=== PATIENT | female | born 1965 | race Caucasian/White ===

== ENCOUNTER 2018-12-24 11:39 | Emergency (ER) | payer MEDICARE, OTHER ==
[~2018-12-24] VITALS: Ht 167.6 cm; Wt 58.6 kg
[~2018-12-24 11:39] MED LIST: ALEN40TA2 PO; CYCL10TA40 PO; DIAZ5TAB5 PO; FLUT16SP16 NS; HYDR-3972 PO; OXYC-511 PO; PROC-8 PO; SIMV10TA6 PO
[2018-12-24 11:59] VITALS: BP 129/79
[2018-12-24] MEDS ORDERED: dexamethasone 0.5 mg/5ml unit-dose oral solution PO STA (12:26)
[2018-12-24] MEDS ORDERED: CLIN150C2 PO (12:26)
[2018-12-24] MEDS ORDERED: ketorolac trometh inj. 60 MG/2 ML VIAL IM ONE (12:30)
[2018-12-24] MEDS ORDERED: dexamethasone sod phosphate 10mg/ml inj PO ONE (12:30)
== END 2018-12-24 12:47 | disposition home or self-care (01) ==
LOC: ER 11:40
DX: L03.211 Cellulitis of face (principal); K13.0 Diseases of lips; G43.909 Migraine, unspecified, not intractable, without status migrainosus; G89.29 Other chronic pain; Z90.710 Acquired absence of both cervix and uterus; Z86.73 Personal history of transient ischemic attack (TIA), and cerebral infarction without residual deficits; Z91.012 Allergy to eggs; Z88.8 Allergy status to other drugs, medicaments and biological substances; Z79.899 Other long term (current) drug therapy
CPT/HCPCS: 96372; 99283; J1100; J1885; J8540

== ENCOUNTER 2019-01-02 10:45 | Emergency (ER) | payer MEDICARE, OTHER ==
[~2019-01-02] VITALS: Ht 167.6 cm; Wt 58.0 kg
[~2019-01-02 10:45] MED LIST changes: +CLIN150C2 PO
[2019-01-02 10:52] VITALS: BP 113/68
[2019-01-02] MEDS ORDERED: DOXY100C2 PO (11:45)
== END 2019-01-02 11:54 | disposition home or self-care (01) ==
LOC: ER 10:45
DX: L03.113 Cellulitis of right upper limb (principal); G43.909 Migraine, unspecified, not intractable, without status migrainosus; G89.29 Other chronic pain; Z86.73 Personal history of transient ischemic attack (TIA), and cerebral infarction without residual deficits; Z90.710 Acquired absence of both cervix and uterus; Z91.012 Allergy to eggs; Z88.8 Allergy status to other drugs, medicaments and biological substances; Z79.899 Other long term (current) drug therapy
CPT/HCPCS: 99283

== ENCOUNTER 2019-04-24 11:53 | Emergency (ER) | payer MEDICARE, MEDICAID ==
[~2019-04-24] VITALS: Ht 172.7 cm; Wt 60.0 kg
[~2019-04-24 11:53] MED LIST changes: -CLIN150C2 PO
[2019-04-24 12:04] VITALS: BP 111/71
[2019-04-24] MEDS ORDERED: TETanus/Pertussis (Acell)/Diphther VAC/PF (Tdap-Adult) 0.5ml syringe IM ONE (12:35)
[2019-04-24] MEDS ORDERED: LIDOcaine 1% w/epiNEPHrine 1:200,000 30ml vial IM ONE (12:35)
[2019-04-24] MEDS ORDERED: CEPH-572 PO (13:06)
[2019-04-24] MEDS ORDERED: SULF1TAB49 PO (13:06)
[2019-04-24] MEDS ORDERED: lidocaine 1%/epinephrine 1:100,000 injection 50ml vial ONE (15:00)
== END 2019-04-24 13:24 | disposition home or self-care (01) ==
LOC: ER 11:54
DX: L02.31 Cutaneous abscess of buttock (principal); G43.909 Migraine, unspecified, not intractable, without status migrainosus; G89.29 Other chronic pain; Z86.73 Personal history of transient ischemic attack (TIA), and cerebral infarction without residual deficits; Z90.710 Acquired absence of both cervix and uterus; Z79.899 Other long term (current) drug therapy; Z91.012 Allergy to eggs; Z88.8 Allergy status to other drugs, medicaments and biological substances
CPT/HCPCS: 10060; 90471; 90715; 99283; J3490

== ENCOUNTER 2020-06-19 15:58 | Emergency (ER) | payer MEDICAID ==
[~2020-06-19] VITALS: Ht 167.6 cm; Wt 59.1 kg
[~2020-06-19 15:58] MED LIST changes: -OXYC-511 PO; +OXYC1TAB17 PO; -SIMV10TA6 PO; +SIMV10TA98 PO
[2020-06-19] MEDS ORDERED: NO HOME MEDS (16:19)
[2020-06-19 17:39] LABS: BASOPHILS % (AUTO) 0.8 % (0-1); EOSINOPHILS # (AUTO) 0.2 X10'3 (0-0.9); EOSINOPHILS % (AUTO) 2.8 % (0-6); HEMATOCRIT 38.4 % (35.0-45.0); HEMOGLOBIN 12.9 g/dl (12.0-16.0); LYMPHOCYTES % (AUTO) 33.7 % (21-51); MEAN CORPUSCULAR HEMOGLOBIN 32.5 PG (27.0-31.0); MEAN CORPUSCULAR HGB CONC 33.4 g/dL (33.0-36.5); MEAN CORPUSCULAR VOLUME 97.1 FL (78-98); MEAN PLATELET VOLUME 6.5 FL (7.4-10.4); MONOCYTES # (AUTO) 0.4 X10'3 (0-0.9); MONOCYTES % (AUTO) 7.4 % (2-12); NEUTROPHILS # (AUTO) 3.3 X10'3 (1.8-7.7); NEUTROPHILS % (AUTO) 55.3 % (42-75); PLATELET COUNT 282 X10'3 (140-440); RED BLOOD COUNT 3.96 X10'6 (4.20-5.60); RED CELL DISTRIBUTION WIDTH 13.3 % (11.5-14.5); WHITE BLOOD COUNT 5.9 X10'3 (4.5-11.0)
[2020-06-19 17:51] LABS: ALANINE AMINOTRANSFERASE 21 U/L (12-78); ALBUMIN 3.7 G/DL (3.4-5.0); ALBUMIN/GLOBULIN RATIO 1.2 (1.1-1.5); ALKALINE PHOSPHATASE 65 IU/L (46-116); ANION GAP 6 (8-16); ASPARTATE AMINO TRANSFERASE 16 U/L (10-37); BILIRUBIN,TOTAL 0.4 MG/DL (0.1-1.0); BLOOD UREA NITROGEN 15 MG/DL (7-18); BUN/CREATININE RATIO 19.7 (6.6-38.0); CALCIUM 8.6 MG/DL (8.5-10.1); CHLORIDE 107 MMOL/L (99-107); CREATININE 0.76 MG/DL (0.40-0.90); GLUCOSE 82 MG/DL (70-104); POTASSIUM 3.4 MMOL/L (3.5-5.1); SODIUM 143 MMOL/L (135-145); TOTAL CARBON DIOXIDE 29.7 MMOL/L (24-32); TOTAL PROTEIN 6.7 G/DL (6.4-8.2); eGFR 79 ML/MIN
[2020-06-19 17:54] LABS: ETHANOL < 0.010 GM/DL (0.0-0.010)
[2020-06-19 17:55] LABS: URINE HCG NEGATIVE (NEG)
[2020-06-19 18:10] LABS: URINE AMPHETAMINE SCREEN POSITIVE (Neg); URINE BARBITUATE SCREEN NEGATIVE (Neg); URINE BENZODIAZEPINES SCREEN NEGATIVE (Neg); URINE CANNABINOID SCREEN NEGATIVE (Neg); URINE COCAINE SCREEN NEGATIVE (Neg); URINE METHADONE SCREEN NEGATIVE (Neg); URINE OPIATE SCREEN NEGATIVE (Neg); URINE PHENCYCLIDINE SCREEN NEGATIVE (Neg)
--- NOTE | 2020-06-19 18:30 | NUR ---
Assumed care of pt from day RN Emmanuelle. Pt standing at the side of her bed asking staff questions about where she is and what she is doing here. Pt cooperative with staff and does not appear aggitated.
--- NOTE | 2020-06-19 19:30 | NUR ---
Pt came up to the RN station after using the restroom and began asking staff where her daughter was that she knew we had her here and stated "please stop the lobotomy". Pt was easily redirected and calmed by staff and returned to her bed without issue.
--- NOTE | 2020-06-19 20:15 | NUR ---
Pt sitting in her bed and eating her dinner tray. No apparent s/s of distress noted
--- NOTE | 2020-06-19 21:00 | NUR ---
Pt appears to be resting comfortably. No apparent s/s of distress noted
--- NOTE | 2020-06-19 22:20 | NUR ---
Patient moved from ER Overflow bed 27 to bed 24. Pt was transferred on her bed. She appears to be resting comfortably with no apparent s/s of distress noted
--- NOTE | 2020-06-19 23:16 | NUR ---
Pt appears to be resting comfortably in bed. No apparent s/s of distress noted
--- NOTE | 2020-06-20 00:38 | NUR ---
Pt appears to be resting comfortably in bed. No apparent s/s of distress noted
--- NOTE | 2020-06-20 01:06 | NUR ---
Pt appears to be resting comfortably in bed. No apparent s/s of distress noted
--- NOTE | 2020-06-20 02:15 | NUR ---
Pt appears to be resting comfortably in bed. No apparent s/s of distress noted
--- NOTE | 2020-06-20 03:01 | NUR ---
Pt appears to be resting comfortably in bed. No apparent s/s of distress noted
--- NOTE | 2020-06-20 03:13 | NUR ---
Checoienjake Pichardo -
--- NOTE | 2020-06-20 04:05 | NUR ---
Pt appears to be resting comfortably in bed. No apparent s/s of distress noted
--- NOTE | 2020-06-20 04:59 | NUR ---
Pt appears to be resting comfortably in bed. No apparent s/s of distress noted
--- NOTE | 2020-06-20 06:19 | NUR ---
Received report from Siria MONTES DE OCA, assumed care.
--- NOTE | 2020-06-20 07:30 | NUR ---
Resting with eyes closed, no s/sx of distress noted.
--- NOTE | 2020-06-20 08:30 | NUR ---
Sitting up in bed, looked up to ceiling and states "I'm mad at you," while pointing to ceiling. Answers questions appropriately, no s/sx of distress noted.
--- NOTE | 2020-06-20 09:24 | NUR ---
Patient resting in bed without needs noted at this time. Made aware she was being released. D/C pending.
[2020-06-20 10:17] VITALS: BP 95/59
== END 2020-06-20 10:20 | disposition home or self-care (01) ==
LOC: ER 15:59
DX: F23 Brief psychotic disorder (principal); F32.9 Major depressive disorder, single episode, unspecified; F41.9 Anxiety disorder, unspecified; G89.29 Other chronic pain; Z86.73 Personal history of transient ischemic attack (TIA), and cerebral infarction without residual deficits; Z86.69 Personal history of other diseases of the nervous system and sense organs; Z90.710 Acquired absence of both cervix and uterus; Z91.012 Allergy to eggs; Z88.8 Allergy status to other drugs, medicaments and biological substances; Z79.899 Other long term (current) drug therapy
CPT/HCPCS: 36415; 80053; 80305; 80320; 81025; 85025; 99285

== ENCOUNTER 2022-08-16 17:27 | Emergency (ER) | payer BC, MEDICARE ==
[~2022-08-16 17:27] MED LIST changes: +NO HOME MEDS
== END 2022-08-16 18:59 | disposition left against medical advice (07) ==
LOC: ER 17:28
DX: M79.646 Pain in unspecified finger(s) (principal); Z53.21 Procedure and treatment not carried out due to patient leaving prior to being seen by health care provider